=== PATIENT | female | born 1960 | race Caucasian/White ===

== ENCOUNTER 2018-07-03 11:30 | Emergency (ER) | payer OTHER ==
[~2018-07-03] VITALS: Ht 162.6 cm; Wt 59.0 kg
[2018-07-03 11:45] VITALS: BP 138/78
== END 2018-07-03 16:17 | disposition home or self-care (01) ==
LOC: ER 11:30 → EDBD 11:30 → ER 16:14
DX: S16.1XXA Strain of muscle, fascia and tendon at neck level, initial encounter (principal); S09.90XA Unspecified injury of head, initial encounter; M54.5 Low back pain; W18.39XA Other fall on same level, initial encounter; Y93.89 Activity, other specified; Y99.8 Other external cause status; Y92.89 Other specified places as the place of occurrence of the external cause
CPT/HCPCS: 70450; 72125; 72131